=== PATIENT | male | born 1940 | race Caucasian/White ===

== ENCOUNTER 2017-01-07 21:41 | Inpatient (IN) | payer MEDICARE, OTHER ==
[~2017-01-07] VITALS: Ht 172.7 cm; Wt 78.5 kg
--- NOTE | ~2017-01-07 | DS ---
Discharge Summary [facility] [address] [place]. [address] NAME: WALLY CAO : 44 STATUS : DIS IN PAT#: [id number] AGE: 76 ADM/REG DATE : 01/07/17 MR#: [id number] REPORT SERV DATE: 01/14/17 DICTATED BY: HALIMA DESAI DATE: 01/13/17 REPORT STATUS : Draft TRANSCRIBED BY: MODL DATE: 01/13/17 ADMISSION DATE: 01/07/2017 DISCHARGE DATE: 01/13/2017 REASON FOR ADMISSION: This was a transfer from [facility] after coming in with a chief complaint of fall and concern for right lower lobe pneumonia. The patient had a couple of recent hospital admissions for pneumonia including one for multidrug resistant Achromobacter and Enterobacter. On admission to the ER, the patient's chest x-ray showed possible right lower lobe infiltrate, and so the patient will be admitted for healthcare- associated pneumonia. The patient also has a history of diffuse parenchymal lung disease, chronic hypoxemic and hypercapnic respiratory failure, bronchiectasis with colonization, COPD, and obstructive sleep apnea with home BiPAP. DISCHARGE DIAGNOSES: 1. Bilateral healthcare-associated pneumonia. 2. End-stage diffuse parenchymal lung disease. 3. Qobov-mc-hrmarvo hypoxemic and hypercapnic respiratory failure. 4. Bronchiectasis. 5. Chronic obstructive pulmonary disease. 6. Obstructive sleep apnea with BiPAP. 7. Congestive heart failure with EF of 40%. 8. Hypertension. 9. Anxiety. 10.Paroxysmal atrial fibrillation. HOSPITAL COURSE: Healthcare-associated pneumonia. The patient admitted and Pulmonary consulted. Martin Bowden with Pulmonary would see the patient. The patient on admission was started on IV vancomycin as well as IV Merrem and Pulmonary agreed with that decision. Eventually, the patient would be transitioned over to oral Levaquin after receiving IV meropenem for 14 doses and IV vancomycin for 5 doses. The patient would require high amounts of oxygen. While here at the hospital, his baseline is 3 L nasal cannula. Initially, he was on BiPAP with FiO2 at 75%. He will be weaned to nasal cannula and now is down to 5 L nasal cannula with O2 sats running between 90% and 94% with a goal of being between 90% and 92%. The patient will continue oral Levaquin through 01/15/2017. Given the patient's chronic diffuse parenchymal lung disease, after much discussion with Pulmonary and Palliative Care, Dr. Garza, the decision was made with family to make him DNR and to go home with hospice. DISCHARGE CONDITION: Stable. DISCHARGE MEDICATIONS: 1. Lisinopril 5 mg p.o. daily. 2. Prednisone 15 mg on odd days and 20 mg on even days. 3. Tramadol 50 mg p.o. daily p.r.n. 4. Robaxin 750 mg p.o. daily p.r.n. 5. MiraLAX one packet p.o. daily. Discharge Summary [facility] [address] [place]. [address] NAME: WALLY CAO : 44 STATUS : DIS IN PAT#: [id number] AGE: 76 ADM/REG DATE : 01/07/17 MR#: [id number] REPORT SERV DATE: 01/14/17 DICTATED BY: HALIMA DESAI DATE: 01/13/17 REPORT STATUS : Draft TRANSCRIBED BY: AMBER DATE: 01/13/17 6. Dulera two puffs inhaled b.i.d. 7. DuoNeb four times a day. 8. Albuterol p.r.n. 9. Bumex 1 mg p.o. daily. 10.Potassium chloride 10 mEq p.o. daily. 11.Florastor 250 mg p.o. b.i.d. 12.Aspirin 81 mg p.o. daily. 13.Toprol 25 mg p.o. daily. 14.Omeprazole 20 mg p.o. daily. 15.Spironolactone 25 mg p.o. daily. 16.Levaquin through 01/15/2017. DISCHARGE PLAN: The patient is discharged home with hospice. They will resume care at home and control of his medications as well. The patient and family in full agreement with hospice and DNR status. Total discharge time greater than 30 minutes. Discharge summary done in collaboration with Dr. Halima Desai. SISI/AMBER Mushtaq Roberts APN Halima Desai M.D. / [id number] CC: Ana Mcpherson MD Garrick B Spoon, PA-C
--- NOTE | ~2017-01-07 | CN ---
Consultation Report [facility] [address] [place]. [address] NAME: WALLY CAO : 44 STATUS : ADM IN PAT#: [id number] AGE: 76 ADM/REG DATE : 01/07/17 MR#: [id number] REPORT SERV DATE: 01/08/17 DICTATED BY: KERMIT SHIRLEY DATE: 01/08/17 REPORT STATUS : Draft TRANSCRIBED BY: MODL DATE: 01/08/17 DATE OF CONSULTATION: 01/08/2017 CHIEF COMPLAINT: Acute on chronic respiratory failure in a patient with end-stage lung disease. HISTORY OF PRESENT ILLNESS: Mr. Wally Cao is a pleasant 76-year-old white male with a past medical history significant for recurrent pneumonias, bronchiectasis, pulmonary fibrosis, COPD and obstructive sleep apnea with BiPAP compliance, who presents to [facility] Emergency Room with complaints of worsening shortness of breath and hypoxemia. It should be noted that the patient has had multiple hospitalizations over the last few months. Mr. Cao is followed by Dr. Herrera of the [facility] for his pulmonary needs. He is on continuous oxygen at 3 L. He is on a pulmonary regimen of DuoNeb, Dulera, and hypertonic saline. He also has a Vest therapy, which he uses. The patient describes himself as a never smoker. He has had secondhand exposures as a child. The patient also confirms childhood asthma. The patient does have known obstructive sleep apnea and is compliant with BiPAP therapy at hour of sleep. His exercise tolerance is extremely limited, only being able to take a few steps before experiencing some shortness of breath. It should be noted that Mr. Cao was seen very recently by our Pulmonary Service for very similar complaints. He did eventually improve and transition home. More recently, he had some changes in medications, of which he feels he did not do well with. He felt dizzy and had difficulty keeping his balance. Unfortunately, he suffered a fall and was eventually seen at [facility] for further assessment. Upon arrival, he had good oxygenation on 4 L. Initial troponin was negative. His BNP at that time was 220. He did have an elevated white count of 28,400. That being said, he is on chronic prednisone therapy. He was eventually transferred to [facility] for further assessment. Overnight, he has had increasing oxygen requirements and increasing work of breathing. As such, he is placed on a BiPAP. Arterial blood gas sampling revealed a pH of 7.41, PaCO2 of 48, and a PaO2 of 91 with bicarb of 29.7. Due to his need for almost continuous BiPAP, he has been transferred to the [facility] for closer observation. It should be noted that the patient is very hard of hearing and has a cochlear implant. That being said, he denies any acute respiratory distress. He does have some complaints of increased work of breathing. He is not producing any sputum and feels that he is not wheezing today. He does have chronic dyspnea. He does have a history of recurrent pneumonias. He has had childhood asthma. He has had significant industrial exposures over the years to both chemical and airborne irritants. He has had previous sputum samples that have grown antibiotic-resistant organisms. In regard to the patient's cardiac needs, he is followed by Dr. Merchant. He does have known congestive heart failure and atrial fibrillation. He currently denies any murmurs, angina, or palpitations. He does have chronic lower extremity edema. In regard to constitutional symptoms, he currently denies fever, chills, nausea, vomiting, Consultation Report [address] [place]. [address] NAME: WALLY CAO : 44 STATUS : ADM IN [facility]#: [id number] AGE: 76 ADM/REG DATE : 01/07/17 MR#: [id number] REPORT SERV DATE: 01/08/17 DICTATED BY: KERMIT SHIRLEY DATE: 01/08/17 REPORT STATUS : Draft TRANSCRIBED BY: AMBER DATE: 01/08/17 chest pain, or abdominal pain. PAST MEDICAL HISTORY: 1. Pseudomonal pneumonia. 2. Chronic hypoxemic respiratory failure. 3. Congestive heart failure. 4. Atrial fibrillation. 5. Benign prostatic hypertrophy. 6. Hypertension. 7. Gastroesophageal reflux. PAST SURGICAL HISTORY: Noncontributory. FAMILY HISTORY: Noncontributory. SOCIAL HISTORY: The patient is currently , she is active in his health care. The patient worked in several occupations over the years. 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 He has also had multiple chemical exposures over the years. He also relates one specific event, where he was caught in a coal chute and was essentially buried in a pile of coal for almost a day before he was found and extricated. TOBACCO/ALCOHOL: As previously mentioned, the patient describes himself as a never smoker. MEDICATIONS: 1. Albuterol. 2. Aspirin 81 mg. 3. Diltiazem 120 mg. 4. Guaifenesin 600 mg. 5. Robaxin 750 mg. 6. Metoprolol 25 mg. 7. Dulera. 8. Omeprazole 20 mg. 9. Prednisone 20 mg. 10.Spironolactone 25 mg. 11.Theophylline 300 mg. 12.Tramadol 150 mg. ALLERGIES: THE PATIENT HAS NO KNOWN DRUG ALLERGIES. REVIEW OF SYSTEMS: Complete review of systems was performed with the pertinent positives and negatives contained within the body of the HPI. Consultation Report [facility] [id number] [facility] [place]. [address] NAME: WALLY CAO : 44 STATUS : ADM IN [facility]#: [id number] AGE: 76 ADM/REG DATE : 01/07/17 MR#: [id number] REPORT SERV DATE: 01/08/17 DICTATED BY: KERMIT SHIRLEY DATE: 01/08/17 REPORT STATUS : Draft TRANSCRIBED BY: AMBER DATE: 01/08/17 PHYSICAL EXAMINATION: VITAL SIGNS: Blood pressure is 92/59, heart rate is 89, T-max is 97.9, respiratory rate is 26, SpO2 is 94% on BiPAP with an FiO2 of 75%. GENERAL: Mr. Wally Cao is a pleasant 76-year-old white male, who looks older than his stated age. He does exhibit signs consistent with increased work of breathing, but is in no acute distress. SKIN: With appropriate texture and turgor. No rashes, lesions, or ulcers. HEENT: Head, skull is normocephalic and atraumatic. Eyes, sclerae anicteric. Ears, auricles and tragus without pain to palpation. The patient is hearing deficient. Nose, bilateral nasal patency. Throat, not assessed secondary to BiPAP mask. NECK: Supple. Trachea midline. THORAX/LUNGS: Diminished breath sounds and low lung volumes appreciated throughout. There were a few scattered rhonchi throughout. CARDIOVASCULAR: No murmurs, rubs, or gallops. Anterior chest without thrills, heaves, or lifts. ABDOMEN: Soft, nondistended, nontender. PERIPHERAL VASCULAR: The patient has chronic lower extremity edema, right greater than left. MUSCULOSKELETAL: Passive range of motion. NEUROLOGIC: Cranial nerves 2 through 12 grossly intact. PSYCHIATRIC: The patient is alert and oriented x3. ACCESSORY DATA: Reveals a white blood cell count of 21,000; hemoglobin and hematocrit are 10.7 and 35.4. Procalcitonin is 0.3. BNP is 227.8, troponin is 0.17. Arterial blood gas reveals pH 7.41, PaCO2 of 48, PaO2 of 91, and bicarb of 29.7. Chest x-ray reveals bibasilar atelectasis and elevation of left hemidiaphragm. There is an echocardiogram pending. IMPRESSION: 1. Acute on chronic hypoxemic-hypercapnic respiratory failure. 2. Healthcare-associated pneumonia. 3. Bronchiectasis with chronic colonization. 4. Diffuse parenchymal lung disease secondary to industrial exposures. 5. Chronic obstructive pulmonary disease. 6. Obstructive sleep apnea with BiPAP compliance. 7. Congestive heart failure. 8. Preferentially elevated left hemidiaphragm. PLAN: 1. At this time, the patient has been placed on BiPAP therapy with some improvement in his breathing. There has been a discussion with the , who requests that the patient remain a full code. The patient does have worsening hypoxemia. We will attempt to obtain a CTA of the chest, although his current condition is somewhat tenuous. We will follow with this test accordingly. 2. In regard to the patient's probable HCAP, he has been placed on the appropriate antibiotics. We will adjust accordingly. Consultation Report [address] [address] NAME: WALLY CAO : 44 STATUS : ADM IN PAT#: [id number] AGE: 76 ADM/REG DATE : 01/07/17 MR#: [id number] REPORT SERV DATE: 01/08/17 DICTATED BY: KERMIT SHIRLEY DATE: 01/08/17 REPORT STATUS : Draft TRANSCRIBED BY: MODHai DATE: 01/08/17 3. In regard to the patient's bronchiectasis, we will attempt to write him with maximum pulmonary toilet. 4. In regard to the patient's congestive heart failure, there is an echocardiogram pending. The aforementioned impression and plan have been discussed with Dr. Power, who will follow further recommendations. We thank you for this consult and look forward to participating in the care of Mr. Wally Cao. MARGOTH/BRYANTL Kermit Shirley PA-C / [id number] CC: Tyler Jackson M.D.
--- NOTE | ~2017-01-07 | PRECARD ---
H&P [facility] [address] [place]. [address] NAME: ROBERT CAO : 44 STATUS : ADM IN [facility]#: [id number] AGE: 76 ADM/REG DATE : 01/07/17 MR#: [id number] REPORT SERV DATE: 01/10/17 DICTATED BY: CHARLA MERCHANT DATE: 01/10/17 REPORT STATUS : Draft TRANSCRIBED BY: AMBER DATE: 01/10/17 DATE OF ADMISSION: 01/07/2017 HISTORY OF PRESENT ILLNESS: Mr. Robert Cao is a 76-year-old gentleman, admitted on 01/09 with diagnoses of bilateral possible pneumonia and hypotension. Cardiology is consulted for atrial fibrillation. Mr. Cao has known severe COPD, on home oxygen. He has a nonischemic cardiomyopathy, ejection fraction about 40%. He also has mild mitral regurgitation. He was seen in the office recently for hypotension, his medications were adjusted. Again, he was admitted on 01/08 with fatigue, malaise, hypotension. The diagnoses according to the hospitalist are sepsis with septic shock, bilateral pneumonia. He has no history of atrial fibrillation. No history of diabetes or stroke. He has improved through the hospitalization with antibiotics. At this time, he denies palpitations. He has persistent fatigue and weakness. PAST MEDICAL HISTORY: COPD, bronchiectasis, decreased hearing with cochlear implants. MEDICATIONS: Aspirin, Brovana, Caltrate, CoQ10, prednisone nebulizers, vancomycin, Lovenox, Merrem, insulin. FAMILY HISTORY: Noncontributory. SOCIAL HISTORY: He is . No alcohol or tobacco. REVIEW OF SYSTEMS: Complete review of systems obtained, pertinent negative and unremarkable except as noted above. All systems addressed. PHYSICAL EXAMINATION: VITAL SIGNS: Pressure is about 110/60, heart rate about 100. GENERAL: Appears chronically ill, decreased hearing, but in no acute distress. LUNGS: Decreased breath sounds, but are clear. CARDIOVASCULAR: Decreased heart sounds without murmur or rub. ABDOMEN: No obvious masses. EXTREMITIES: Have mild edema. LABORATORY DATA: White count 24.2, hematocrit is 32.2, platelet count is 374,000. BUN is 32, creatinine 0.7. Troponin was 0.17. BNP was 228. EKG telemetry demonstrates sinus rhythm. Echo, ejection fraction is 50%. EKG is sinus rhythm with anterior infarct pattern. [facility]P [facility] [id number] [place]. [address] NAME: ROBERT CAO : 44 STATUS : ADM IN PAT#: [id number] AGE: 76 ADM/REG DATE : 01/07/17 MR#: [id number] REPORT SERV DATE: 01/10/17 DICTATED BY: CHARLA MERCHANT DATE: 01/10/17 REPORT STATUS : Draft TRANSCRIBED BY: AMBER DATE: 01/10/17 EKG is sinus tachycardia with change in R-wave progression likely deep position. Third EKG is sinus rhythm. I have reviewed all the telemetry strips in the chart that is available. All those telemetry strips demonstrate sinus rhythm. There were some PACs and PVCs. Two of the sinus strips are handwritten, atrial fibrillation, those clearly demonstrate sinus rhythm with definite P waves. ASSESSMENT: Mr. Cao is a very nice 76-year-old gentleman with severe chronic obstructive pulmonary disease, nonischemic cardiomyopathy, ejection fraction is normal now. Cardiology is consulted for atrial fibrillation. EKGs all demonstrate sinus rhythm. The telemetry demonstrates sinus rhythm now. I can see mislabeled telemetry strips on the chart that are written with atrial fibrillation, those EKGs demonstrate definite sinus rhythm with easily visible P waves with a regular RR interval. I can find no atrial fibrillation in the chart at this time. PLAN: I would continue the current regimen. KVNG/AMBER Charla Merchant M.D. / [id number] CC: Tyler Jackson M.D.
--- NOTE | ~2017-01-07 | HP ---
History And Physical [address] [address] NAME: WALLY CAO : 44 STATUS : ADM IN [facility]#: [id number] AGE: 76 ADM/REG DATE : 01/07/17 MR#: [id number] REPORT SERV DATE: 01/08/17 DICTATED BY: FRANCES OCHOA DATE: 01/08/17 REPORT STATUS : Draft TRANSCRIBED BY: AMBER DATE: 01/08/17 DATE OF ADMISSION: 01/07/2017 POINT OF ENTRY: Transferred from [facility] Emergency Department. PRIMARY GLUE SPREADER: Kalen Merchant M.D. PRIMARY GARMENT LINER: Guero Martinez M.D. CHIEF COMPLAINT: Fall, concerned for right lower lobe pneumonia. HISTORY OF PRESENT ILLNESS: Mr. Cao is a 76-year-old gentleman with a very complex previous medical history including chronic systolic congestive heart failure with last ejection fraction approximately 40%, chronic hypoxic respiratory failure on 3 L by nasal cannula, COPD, obstructive sleep apnea on nocturnal BiPAP, concern for interstitial lung disease and bronchiectasis as well as recent diagnosis of multi-drug resistant Achromobacter and Enterobacter pneumonia, who presented to [facility] Emergency Department today with reports of a mechanical fall as well as not feeling well and short of breath. The patient has been admitted twice within the last two months to the hospital. The first was in October where he was diagnosed with multifocal pneumonia with sputum culture growing multi-drug resistant Achromobacter as well as Enterobacter. Infectious Disease saw the patient, and he was discharged on two-week course of oral Bactrim therapy which states that he completed. The patient was readmitted a few days later to the ICU with hypotension which was felt possibly due to his medications, as medication holiday, gentle IV fluid hydration, as well as stress dose steroids quickly resolved his hypotension. states that he recently saw Dr. Merchant in clinic yesterday, in fact he saw his nurse practitioner. For some reason, medications of Coreg and lisinopril were changed over to metoprolol and diltiazem. states that he did take a single dose of the new medication regimen this morning. The patient went to [place] today to have his cochlear implant activated. They were in [facility] this evening dropping off a friend who accompanied them to [place] when he suffered a mechanical fall while climbing a set of steps. denies any loss of conscious or head trauma. He states that his fall was broken by a family friend as well as a flower pot. The patient was thus transferred to [facility] for evaluation. Initial evaluation at [facility] for plain films that were negative for any fracture or dislocation. Chest x-ray was concerning for possible right lower lobe pneumonia as well as an elevated left hemidiaphragm. White count was elevated at 28,400. He was noted to be saturating well on 4 L by nasal cannula. He was noted to be in atrial fibrillation with heart rates in the one-teens to 120s. His troponin was 0.06 which is right at the upper limit of normal for [facility] and BNP was elevated 220 with upper limit of cutoff being 100. The patient was given a g of IV Rocephin for his concern for pneumonia and then transferred to [facility] for higher level of care. History And Physical [address] [address] NAME: WALLY CAO : 44 STATUS : ADM IN PAT#: [id number] AGE: 76 ADM/REG DATE : 01/07/17 MR#: [id number] REPORT SERV DATE: 01/08/17 DICTATED BY: FRANCES OCHOA DATE: 01/08/17 REPORT STATUS : Draft TRANSCRIBED BY: AMBER DATE: 01/08/17 Upon arrival at [facility] he was noted to be hypoxemic saturating 81% on 5 L nasal cannula. He was then placed on a non-rebreather saturating 90-92%. He was then transitioned over to BiPAP 13/10, FiO2 of 80% where a stat ABG confirmed acute on chronic hypoxic respiratory failure, but with normal pCO2. Majority of the history was obtained from as the patient is currently sleeping, as it is very difficult to communicate with the patient as he is on BiPAP as well as has severe hearing impairment. states that he had been doing well. She denies any recent fevers, night sweats, or chills. Denies any recent change in his pulmonary status, he continues to have chronic sputum production. Remains on his 3 L nasal cannula with oxygen saturations at home between 88-92%. states that he has reported just feeling very fatigued, and tired over the past few days. Does occasionally also endorse some chest discomfort and pressure, but no chest pain. She denies any concern for volume overload or buildup including lower extremity edema. REVIEW OF SYSTEMS: Comprehensive system otherwise negative unless listed in history of present illness. PREVIOUS MEDICAL HISTORY: 1. COPD. 2. Chronic hypoxic respiratory failure on 3 L nasal cannula. 3. Obstructive sleep apnea, on BiPAP therapy. 4. Nonobstructive coronary artery disease. 5. Chronic systolic congestive heart failure with ejection fraction of 40%. 6. GERD. 7. BPH status post TURP. 8. Anxiety. 9. Hypertension. 10.Chronically elevated left hemidiaphragm. 11.Paroxysmal atrial fibrillation. 12.History of interstitial lung disease and bronchiectasis. 13.Recent admission with multi-drug resistant Achromobacter and Enterobacter pneumonia. 14.Degenerative disk disease and spinal stenosis. 15.T6 compression fracture. SURGICAL HISTORY: 1. TURP. 2. Cochlear implant. 3. Hernia repair surgery x3. 4. Right leg ORIF. 5. Carpal tunnel. 6. UPPP. 7. Septoplasty x2. 8. Tonsillectomy. ALLERGIES: NO KNOWN DRUG ALLERGIES. History And Physical [address] [address] NAME: WALLY CAO : 44 STATUS : ADM IN [facility]#: [id number] AGE: 76 ADM/REG DATE : 01/07/17 MR#: [id number] REPORT SERV DATE: 01/08/17 DICTATED BY: FRANCES OCHOA DATE: 01/08/17 REPORT STATUS : Draft TRANSCRIBED BY: AMBER DATE: 01/08/17 HOME MEDICATIONS: Pending at time of dictation. SOCIAL HISTORY: Denies any tobacco, alcohol, or illicits. FAMILY MEDICAL HISTORY: Mother with coronary artery disease and lung disease. Father of complications of a motor vehicle accident. LABS AND IMAGING: All obtained from transfer records from [facility] Emergency Department. 1. White count is 28.4, hemoglobin is 13.2, hematocrit is 44.9, and platelet count is 497. 2. Sodium is 141, potassium is 4.5, chloride is 104, carbon dioxide is 26, BUN is 24, creatinine is 0.9, glucose is 168, calcium is 8.5, protein is 5.8, albumin is 2.9, bilirubin is 0.5, ALT is 7, AST is 16, and alkaline phosphatase is 72. 3. Troponin is 0.06 cutoff being less than 0.06. 4. BNP is 220, cutoff being less than 100. 5. Chest x-ray per ER physician report shows an elevated left hemidiaphragm with gastric bubble as well as possible right lower lobe infiltrate. 6. EKG shows atrial fibrillation with RVR with heart rates in the one-teens to 120s. No evidence of any acute ischemia or infarction. 7. ABG obtained here at [facility] shows a pH of 7.41, pCO2 is 40, pO2 is 91, bicarb is 30, saturating 94% on 80% FiO2 and BiPAP of 14/6. PHYSICAL EXAMINATION: VITAL SIGNS: Temperature is 98.0 degrees Fahrenheit, pulse is 103, respirations 16, initially saturating 81% on 5 L nasal cannula, blood pressure 103/73, and now saturating 96% on 80% BiPAP. GENERAL: The patient is asleep, but will awaken to verbal stimuli. He is extremely hard of hearing, difficult to communicate, currently on BiPAP. He is a well-developed, well- nourished, elderly male. Family is at bedside. HEENT: Atraumatic and normocephalic. Moist mucous membranes. Pupils are equal, round, reactive to light and accommodation. Extraocular eye movements intact. No scleral icterus. NECK: No jugular venous distention. No carotid bruits. LUNGS: In no respiratory distress. Does have some decreased breath sounds in the bases, but otherwise no wheezes, rhonchi, or crackles appreciated. ABDOMEN: Obese, soft, nontender, nondistended with good bowel sounds. No rebound, guarding, or rigidity. EXTREMITIES: Warm and perfused with trace lower extremity edema. SKIN: Warm and dry. PSYCH: Unable to assess as the patient is difficult to communicate with. NEURO: The patient is currently asleep, but awakens to verbal stimuli and answer basic questions. He moves all extremities well. ASSESSMENT AND PLAN: Mr. Cao is a 76-year-old gentleman with a history of chronic hypoxic respiratory failure, chronic obstructive pulmonary disease, bronchiectasis, and obstructive sleep apnea, as well as congestive heart failure, who was transferred from [facility] Emergency Department for concerns for right lower lobe pneumonia. History And Physical [address] [address] NAME: WALLY CAO : 44 STATUS : ADM IN PAT#: [id number] AGE: 76 ADM/REG DATE : 01/07/17 MR#: [id number] REPORT SERV DATE: 01/08/17 DICTATED BY: FRANCES OCHOA DATE: 01/08/17 REPORT STATUS : Draft TRANSCRIBED BY: AMBER DATE: 01/08/17 PROBLEM LIST: 1. Possible right lower lobe pneumonia, healthcare-associated pneumonia. 2. Acute on chronic hypoxic respiratory failure. 3. Leukocytosis. 4. Obstructive sleep apnea, on BiPAP therapy. 5. Chronic systolic congestive heart failure, ejection fraction of 40%. 6. Fall. 7. Borderline low blood pressures. 8. History of multi-drug resistant pneumonia. 9. COPD, on 3 L nasal cannula. PLAN: 1. Possible right lower lobe pneumonia. We will obtain a chest x-ray here to confirm the patient does also have history of interstitial lung disease and bronchiectasis. Given the patient's white count we will empirically treat for healthcare-associated pneumonia overnight. Given his history of multi-drug resistant organisms we will treat initially with IV vancomycin as well as Merrem. Follow up blood cultures obtain at [facility] as well as try to obtain sputum cultures as well as urinary antigens here. 2. Acute on chronic hypoxic respiratory failure likely secondary to possible right lower lobe pneumonia as I do not appreciate any evidence of gross volume overload or acute COPD exacerbation. Given his hypoxic respiratory failure he is currently on BiPAP at 80% FiO2, we will try to wean as tolerated. We will treat with antibiotics, frequent bronchodilators, as well as some increase in his baseline steroids. 3. Obstructive sleep apnea. Continue the patient on intermittent BiPAP, try to obtain home settings as well as have family bring in home BiPAP. 4. Chronic systolic congestive heart failure. The patient does not appear grossly volume overloaded to me on exam, but we will check a chest x-ray as well as a BNP level here. Continue the patient's home diuretics avoiding IV fluids at this time. 5. Mechanical fall. Per transfer records as well as ER report, plain films were all negative for fractures or dislocation related to his fall. 6. Borderline low blood pressures. Blood pressures over [facility] were initially at borderline, these have improved, but overnight we will hold his antihypertensives in an effort to avoid any fluid resuscitation. 7. Atrial fibrillation. The patient currently is in AFib with heart rates in the one- teens to 120s. We will hold off on any diltiazem drip at this time. We will continue him on some low-dose rate control medications. 8. Leukocytosis, again likely secondary to possible right lower lobe pneumonia; however, he is on chronic steroids. We will check urinalysis as well. Blood cultures were obtained at outside facility. Checking lactic acid level as well as a procalcitonin. 9. History of multi-drug resistant pneumonia. We will place the patient on contact precautions. Repeat sputum culture. Initially place the patient on IV Merrem which should cover both organisms of Achromobacter and Enterobacter. 10.DVT prophylaxis. Lovenox subcu. CODE STATUS: The patient wishes to be full code. History And Physical [address] [address] NAME: WALLY CAO : 44 STATUS : ADM IN PAT#: [id number] AGE: 76 ADM/REG DATE : 01/07/17 MR#: [id number] REPORT SERV DATE: 01/08/17 DICTATED BY: FRANCES OCHOA DATE: 01/08/17 REPORT STATUS : Draft TRANSCRIBED BY: AMBER DATE: 01/08/17 ABDELRAHMAN/AMBER Frances Ochoa MD / [id number] CC: Ana Grant MD Mark Thel, M.D. Harsha Shanthaveerappa, M.D.
[~2017-01-07 21:41] MED LIST: ACCUNEB INH; AMPI250 PO; ASAB PO; ATROVENT HFA17 MCG INH; BACTRIM DS1 TAB PO; BUM1 PO; CIP5 PO; CO Q-10100 MG PO; COLCH6 PO; COLCRYS0.6 MG PO; COREG6 PO; DSS PO; DULERA 100 MCG/13 GM INH; DULERA 200 MCG/13 GM INH; DUONEB INH; FIBER GUMMIES PO; FLOMAX4 PO; FLORASTOR250 MG PO; FOSAMAX70 MG PO; HYPERTONIC SALINE INH; K-TABS10 MEQ PO; LEVAQUIN5T PO; LORTAB 5 PO; METHOC750B PO; MIRALAX POWDER1 PKT PO; MIRALAXPKT PO; MUCINEX D1 TA1 OR; MUCINEX D1 TA1 PO; MUCINEX600 MG PO; MULTIPLE VIT PO; OS500+D PO; OSTEO BI-FLEX1 EACH PO; P10 PO; P20 PO; P5 PO; PCET PO; PEPCID40 MG OR; PRESERVISION A1 EACH PO; PRILO PO; PRILOSEC OTC20 MG PO; PRIN5 PO; PROAIR HFA INH; PROSCAR5 PO; PROVENTSOL INH; SPIRIVA INH; T300 PO; THEO24300 PO; TRIBENZOR 20-51 EACH PO; TRIBENZOR PO; TUMERIC; TURMERIC PO; ULTRAM50 PO; URO-MAG140 MG PO; VOLT75 PO; XOPEN0.5ML INH
[2017-01-08 00:25] LABS: BIPAP 14/6 cm.H2O; HCO3 (ACTUAL BICARBONATE) 29.7 MEQ/L (23-27); INSTRUMENT SERIAL # 35151; OPERATOR ID 30013; PCO2 (CO2 TENSION) 48 MMHG (35-45); PO2 (O2 TENSION) 91 MMHG (79-93); SAMPLE Arterial; pH 7.41 (7.37-7.43)
[2017-01-08 03:03] LABS: BASOPHILS 0 %; BASOPHILS ABSOLUTE 0.01 10/3/uL (0.0-0.16); EOSINOPHILS 0 %; HEMATOCRIT 35.4 % (40.0-51.0); HEMOGLOBIN 10.7 g/dL (13.6-17.8); IMMATURE GRANULOCYTES 0.5 %; IMMATURE GRANULOCYTES ABSOLUTE 0.11 10/3/uL (0.0-0.11); LYMPHOCYTES 4.8 %; LYMPHOCYTES ABSOLUTE 1.02 10/3/uL (0.67-4.30); MEAN CORPUS HGB CONC 30.2 g/dL (32.0-36.0); MEAN CORPUSCULAR HEMOGLOB 27.8 pg (26.0-34.0); MEAN CORPUSCULAR VOLUME 91.9 fL (80-100); MEAN PLATELET VOLUME 8.5 fL (9.2-13.0); MONOCYTES 5.2 %; NEUTROPHILS 89.5 %; PLATELET COUNT 439 10/3/uL (150-400); RBC DISTRIBUTION WIDTH 16.9 % (12.0-16.0); RED CELL COUNT 3.85 10/6/uL (4.7-6.1)
[2017-01-08 03:04] LABS: MANUAL DIFF NO %
[2017-01-08 03:11] LABS: INTERNATIONAL NORMAL RATI 1.1 UNITS (-); PARTIAL THROMBO TIME 31.4 SEC (22.5-37.2); PROTIME (NOT ORD) 14.4 SEC (12.0-14.5)
[2017-01-08 03:23] LABS: A/G RATIO 0.6 (0.7-1.9); ALBUMIN 2.1 G/DL (3.5-5.0); ALKALINE PHOSPHATASE 85 U/L (45-117); BUN (BLOOD UREA NITROGEN) 30 MG/DL (6-23); CALCIUM, SERUM 8.8 MG/DL (8.5-10.4); CHLORIDE, SERUM 103 MMOL/L (96-112); CO2 (CARBON DIOXIDE) 31 MMOL/L (24-34); CREATININE 0.89 MG/DL (0.70-1.30); GFR AFRICAN AMERICAN 98 ML/MIN (>=60); GFR NON AFRICAN AMERICAN 84 ML/MIN (>=60); GLOBULIN 3.8 G/DL (2.5-4.1); GLUCOSE, SERUM 95 MG/DL (60-99); POTASSIUM, SERUM 4.9 MMOL/L (3.5-5.3); SGOT(AST) 15 U/L (5-40); SGPT(ALT) 10 U/L (5-65); SODIUM, SERUM 138 MMOL/L (135-148); TOTAL BILIRUBIN 0.3 MG/DL (0-1.2); TOTAL PROTEIN 5.9 G/DL (6.0-8.5)
[2017-01-08 03:24] LABS: TROPONIN I 0.17 NG/ML (<0.05)
[2017-01-08] MEDS ORDERED: ASAB PO (04:50)
[2017-01-08] MEDS ORDERED: OS500+D PO (04:51)
[2017-01-08] MEDS ORDERED: CO Q-10100 MG PO (04:52)
[2017-01-08] MEDS ORDERED: CARDCD120 PO (04:53)
[2017-01-08] MEDS ORDERED: DULERA 100 MCG/13 GM INH (04:53)
[2017-01-08] MEDS ORDERED: TOPXL25 PO (04:55)
[2017-01-08] MEDS ORDERED: METHOC750B PO (04:55)
[2017-01-08] MEDS ORDERED: MIRALAX POWDER1 PKT PO (04:56)
[2017-01-08] MEDS ORDERED: HUMI PO (04:57)
[2017-01-08] MEDS ORDERED: PRILO PO (04:58)
[2017-01-08] MEDS ORDERED: P20 PO (04:58)
[2017-01-08] MEDS ORDERED: SPIRO25 PO (04:59)
[2017-01-08] MEDS ORDERED: PROAIR HFA INH (04:59)
[2017-01-08] MEDS ORDERED: T300 PO (05:00)
[2017-01-08] MEDS ORDERED: ULTRAM50 PO (05:01)
[2017-01-08] MEDS ORDERED: TURMERIC (05:03)
[2017-01-08 10:58] LABS: ALLENS TEST Pos; BE (BASE EXCESS) 3.1 MEQ/L (0 +/- 2.5); BIPAP 14/6 cm.H2O; CARBOXYHEMOGLOBIN 0.2 % (0-3); HCO3 (ACTUAL BICARBONATE) 29.3 MEQ/L (23-27); INSTRUMENT SERIAL # 8083; METHEMOGLOBIN 0.3 % (0-3); O2 CONTENT 16.3 VOL% (18-24); OPERATOR ID 35091; PCO2 (CO2 TENSION) 52 MMHG (35-45); PO2 (O2 TENSION) 91 MMHG (79-93); SAMPLE Arterial; pH 7.37 (7.37-7.43)
[2017-01-08 11:17] LABS: THEOPHYLLINE 5.4 MCG/ML (8.0-15.0)
[2017-01-08 11:18] LABS: TROPONIN I 0.06 NG/ML (<0.05)
[2017-01-09 03:52] LABS: ALLENS TEST Pos; BE (BASE EXCESS) 0.5 MEQ/L (0 +/- 2.5); BIPAP 14/6 cm.H2O; CARBOXYHEMOGLOBIN 0.6 % (0-3); HEMOBLOGIN CONTENT 11.7 G/DL (14-18); INSTRUMENT SERIAL # 8083; METHEMOGLOBIN 0.4 % (0-3); O2 CONTENT 15.7 VOL% (18-24); OPERATOR ID 30013; PCO2 (CO2 TENSION) 45 MMHG (35-45); PO2 (O2 TENSION) 84 MMHG (79-93); SAMPLE Arterial; pH 7.38 (7.37-7.43)
[2017-01-09 04:42] LABS: BASOPHILS 0.1 %; BASOPHILS ABSOLUTE 0.01 10/3/uL (0.0-0.16); EOSINOPHILS 0 %; HEMATOCRIT 37.2 % (40.0-51.0); HEMOGLOBIN 11.4 g/dL (13.6-17.8); IMMATURE GRANULOCYTES 0.6 %; IMMATURE GRANULOCYTES ABSOLUTE 0.11 10/3/uL (0.0-0.11); LYMPHOCYTES 2.2 %; LYMPHOCYTES ABSOLUTE 0.38 10/3/uL (0.67-4.30); MEAN CORPUS HGB CONC 30.6 g/dL (32.0-36.0); MEAN CORPUSCULAR HEMOGLOB 28.1 pg (26.0-34.0); MEAN CORPUSCULAR VOLUME 91.6 fL (80-100); MEAN PLATELET VOLUME 8.8 fL (9.2-13.0); MONOCYTES 2.8 %; NEUTROPHILS 94.3 %; NEUTROPHILS ABSOLUTE 16.58 10/3/uL (2.02-8.40); PLATELET COUNT 466 10/3/uL (150-400); RBC DISTRIBUTION WIDTH 16.5 % (12.0-16.0); RED CELL COUNT 4.06 10/6/uL (4.7-6.1); WHITE BLOOD CELLS 17.6 10/3/uL (4.5-10.5)
[2017-01-09 04:44] LABS: MANUAL DIFF NO %
[2017-01-09 04:51] LABS: A/G RATIO 0.5 (0.7-1.9); ALBUMIN 2.1 G/DL (3.5-5.0); ALKALINE PHOSPHATASE 80 U/L (45-117); BUN (BLOOD UREA NITROGEN) 33 MG/DL (6-23); CALCIUM, SERUM 8.6 MG/DL (8.5-10.4); CHLORIDE, SERUM 104 MMOL/L (96-112); CO2 (CARBON DIOXIDE) 28 MMOL/L (24-34); CREATININE 0.98 MG/DL (0.70-1.30); GFR AFRICAN AMERICAN 88 ML/MIN (>=60); GFR NON AFRICAN AMERICAN 76 ML/MIN (>=60); GLUCOSE, SERUM 302 MG/DL (60-99); POTASSIUM, SERUM 5.2 MMOL/L (3.5-5.3); SGOT(AST) 10 U/L (5-40); SGPT(ALT) 9 U/L (5-65); SODIUM, SERUM 139 MMOL/L (135-148); TOTAL BILIRUBIN 0.2 MG/DL (0-1.2); TOTAL PROTEIN 6.1 G/DL (6.0-8.5); TROPONIN I 0.04 NG/ML (<0.05)
[2017-01-09 05:26] LABS: PROCALCITONIN 0.28 ng/mL (<0.5)
[2017-01-10 05:27] LABS: HEMOGLOBIN 9.9 g/dL (13.6-17.8); MEAN CORPUS HGB CONC 30.7 g/dL (32.0-36.0); MEAN CORPUSCULAR HEMOGLOB 28.5 pg (26.0-34.0); MEAN CORPUSCULAR VOLUME 92.8 fL (80-100); MEAN PLATELET VOLUME 8.8 fL (9.2-13.0); PLATELET COUNT 374 10/3/uL (150-400); RBC DISTRIBUTION WIDTH 16.1 % (12.0-16.0); RED CELL COUNT 3.47 10/6/uL (4.7-6.1); WHITE BLOOD CELLS 24.2 10/3/uL (4.5-10.5)
[2017-01-10 05:30] LABS: BUN (BLOOD UREA NITROGEN) 32 MG/DL (6-23); CALCIUM, SERUM 7.9 MG/DL (8.5-10.4); CHLORIDE, SERUM 108 MMOL/L (96-112); CO2 (CARBON DIOXIDE) 26 MMOL/L (24-34); CREATININE 0.76 MG/DL (0.70-1.30); GFR AFRICAN AMERICAN 104 ML/MIN (>=60); GFR NON AFRICAN AMERICAN 90 ML/MIN (>=60); GLUCOSE, SERUM 106 MG/DL (60-99); PHOSPHORUS, SERUM 2.2 MG/DL (2.5-4.5); POTASSIUM, SERUM 4.9 MMOL/L (3.5-5.3); SODIUM, SERUM 141 MMOL/L (135-148)
[2017-01-10 05:42] LABS: HEMATOCRIT 32.2 % (40.0-51.0); MANUAL DIFF YES %
[2017-01-10 06:23] LABS: ACANTHOCYTES OCC (0-2/OIF); BAND NEUTROPHILS 4 %; BURR CELLS 1+ (3-10/OIF) (0-2/OIF); LYMPHOCYTES 1 %; LYMPHOCYTES ABSOLUTE (CALC) 0.24 10/3/uL (0.67-4.30); MONOCYTES 1 %; MONOCYTES ABSOLUTE (CALC) 0.24 10/3/uL (0.21-1.20); NEUTROPHILS ABSOLUTE (CALC) 23.72 10/3/uL (2.02-8.40); PLATELET ESTIMATE ADQ (ADEQUATE); POLYCHROMASIA 1+ (2-5/OIF) (0-1/OIF); SEGMENTED NEUTROPHIL (0) 94 %; TOTAL NUCLEATED CELLS 100; TOXIC GRANULATION 1+; VACUOLATED NEUTROPHILES OCC
[2017-01-11 06:19] LABS: BASOPHILS 0.1 %; BASOPHILS ABSOLUTE 0.01 10/3/uL (0.0-0.16); EOSINOPHILS 0.1 %; EOSINOPHILS ABSOLUTE 0.01 10/3/uL (0.0-0.53); HEMATOCRIT 32.8 % (40.0-51.0); HEMOGLOBIN 10.1 g/dL (13.6-17.8); IMMATURE GRANULOCYTES 0.8 %; IMMATURE GRANULOCYTES ABSOLUTE 0.13 10/3/uL (0.0-0.11); LYMPHOCYTES 5.7 %; LYMPHOCYTES ABSOLUTE 0.89 10/3/uL (0.67-4.30); MEAN CORPUS HGB CONC 30.8 g/dL (32.0-36.0); MEAN CORPUSCULAR HEMOGLOB 28.1 pg (26.0-34.0); MEAN CORPUSCULAR VOLUME 91.4 fL (80-100); MEAN PLATELET VOLUME 8.6 fL (9.2-13.0); MONOCYTES 7.3 %; MONOCYTES ABSOLUTE 1.14 10/3/uL (0.21-1.20); NEUTROPHILS ABSOLUTE 13.41 10/3/uL (2.02-8.40); PLATELET COUNT 401 10/3/uL (150-400); RBC DISTRIBUTION WIDTH 16.3 % (12.0-16.0); RED CELL COUNT 3.59 10/6/uL (4.7-6.1); WHITE BLOOD CELLS 15.6 10/3/uL (4.5-10.5)
[2017-01-11 06:20] LABS: MANUAL DIFF NO %
[2017-01-11 06:36] LABS: CALCIUM, SERUM 7.8 MG/DL (8.5-10.4); CHLORIDE, SERUM 107 MMOL/L (96-112); CO2 (CARBON DIOXIDE) 28 MMOL/L (24-34); CREATININE 0.52 MG/DL (0.70-1.30); GFR AFRICAN AMERICAN 122 ML/MIN (>=60); GFR NON AFRICAN AMERICAN 105 ML/MIN (>=60); PHOSPHORUS, SERUM 1.7 MG/DL (2.5-4.5); POTASSIUM, SERUM 4.4 MMOL/L (3.5-5.3); SODIUM, SERUM 142 MMOL/L (135-148)
[2017-01-11 06:37] LABS: BUN (BLOOD UREA NITROGEN) 23 MG/DL (6-23); GLUCOSE, SERUM 73 MG/DL (60-99)
[2017-01-12 05:06] LABS: BASOPHILS 0 %; EOSINOPHILS 0.1 %; EOSINOPHILS ABSOLUTE 0.01 10/3/uL (0.0-0.53); HEMATOCRIT 33.1 % (40.0-51.0); HEMOGLOBIN 10.3 g/dL (13.6-17.8); IMMATURE GRANULOCYTES 1.2 %; IMMATURE GRANULOCYTES ABSOLUTE 0.17 10/3/uL (0.0-0.11); LYMPHOCYTES 4.2 %; MANUAL DIFF NO %; MEAN CORPUS HGB CONC 31.1 g/dL (32.0-36.0); MEAN CORPUSCULAR HEMOGLOB 28.2 pg (26.0-34.0); MEAN CORPUSCULAR VOLUME 90.7 fL (80-100); MEAN PLATELET VOLUME 8.5 fL (9.2-13.0); MONOCYTES 7.6 %; MONOCYTES ABSOLUTE 1.09 10/3/uL (0.21-1.20); NEUTROPHILS 86.9 %; PLATELET COUNT 371 10/3/uL (150-400); RBC DISTRIBUTION WIDTH 16.3 % (12.0-16.0); RED CELL COUNT 3.65 10/6/uL (4.7-6.1); WHITE BLOOD CELLS 14.4 10/3/uL (4.5-10.5)
[2017-01-12 05:29] LABS: BUN (BLOOD UREA NITROGEN) 16 MG/DL (6-23); CALCIUM, SERUM 8.1 MG/DL (8.5-10.4); CHLORIDE, SERUM 105 MMOL/L (96-112); CO2 (CARBON DIOXIDE) 32 MMOL/L (24-34); CREATININE 0.39 MG/DL (0.70-1.30); GFR AFRICAN AMERICAN 137 ML/MIN (>=60); GFR NON AFRICAN AMERICAN 118 ML/MIN (>=60); GLUCOSE, SERUM 70 MG/DL (60-99); PHOSPHORUS, SERUM 1.8 MG/DL (2.5-4.5); POTASSIUM, SERUM 4.8 MMOL/L (3.5-5.3); SODIUM, SERUM 141 MMOL/L (135-148)
[2017-01-13] MEDS ORDERED: LEVAQUIN750 MG PO (18:00)
== END 2017-01-13 19:36 | disposition hospice, home (50) | DRG 871 ==
LOC: ENRESERV → ENRESERVDT → ENRESERVTM → 7NO → IMCU 23:28 → 7NO 01-09 20:33
PROVIDERS: Hospitalist; Internal Medicine; Internal Medicine Pulmonary Disease; Physician Assistant Medical
PROC: 5A09357 Assistance with Respiratory Ventilation, Less than 24 Consecutive Hours, Continuous Positive Airway Pressure (ICD-10-PCS; principal; 2017-01-08)
PROC: 02HV33Z Insertion of Infusion Device into Superior Vena Cava, Percutaneous Approach (ICD-10-PCS; 2017-01-08)
DX: A41.9 Sepsis, unspecified organism (principal); J96.21 Acute and chronic respiratory failure with hypoxia; R65.21 Severe sepsis with septic shock; J18.9 Pneumonia, unspecified organism; Z99.81 Dependence on supplemental oxygen; I48.0 Paroxysmal atrial fibrillation; I27.2 Other secondary pulmonary hypertension; J44.0 Chronic obstructive pulmonary disease with (acute) lower respiratory infection; Z51.5 Encounter for palliative care; Z66 Do not resuscitate; Y95 Nosocomial condition; G47.33 Obstructive sleep apnea (adult) (pediatric); F41.9 Anxiety disorder, unspecified; N40.0 Benign prostatic hyperplasia without lower urinary tract symptoms; K21.9 Gastro-esophageal reflux disease without esophagitis; I08.3 Combined rheumatic disorders of mitral, aortic and tricuspid valves; J98.6 Disorders of diaphragm; R73.9 Hyperglycemia, unspecified; T38.0X5A Adverse effect of glucocorticoids and synthetic analogues, initial encounter; I49.1 Atrial premature depolarization; W19.XXXA Unspecified fall, initial encounter; Z87.01 Personal history of pneumonia (recurrent); Z57.5 Occupational exposure to toxic agents in other industries
CPT/HCPCS: 36569; 36600; 71010; 71250; 80048; 80053; 80198; 80202; 82533; 82784; 82805; 82962; 83605; 83735; 83880; 84100; 84145; 84484; 85025; 85610; 85730; 87641; 93005; 94640; 94660; 94667; 94668; A9270-GY; C1751; C8929; J2185; J2930; J3370; Q9957